=== PATIENT | female | born 1960 | race American Indian/Alaskan Native ===

== ENCOUNTER 2016-05-31 12:48 | Emergency (ER) | payer OTHER, MEDICAID ==
[2016-05-31 13:36] VITALS: BP 119/84
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
== END 2016-05-31 15:34 | disposition home or self-care (01) ==
LOC: ED 12:48
DX: M54.5 Low back pain (principal); V43.52XA Car driver injured in collision with other type car in traffic accident, initial encounter; Y93.89 Activity, other specified; Y99.8 Other external cause status; Y92.89 Other specified places as the place of occurrence of the external cause
CPT/HCPCS: 99282

== ENCOUNTER 2016-07-31 21:11 | Emergency (ER) | payer OTHER, MEDICAID | END 2016-08-01 00:28 | disposition left against medical advice (07) | LOC: ED 21:11 | DX: S69.91XA Unspecified injury of right wrist, hand and finger(s), initial encounter (principal); X58.XXXA Exposure to other specified factors, initial encounter; Y93.9 Activity, unspecified; Y99.9 Unspecified external cause status; Y92.9 Unspecified place or not applicable; Z53.21 Procedure and treatment not carried out due to patient leaving prior to being seen by health care provider ==

== ENCOUNTER 2016-08-01 10:11 | Emergency (ER) | payer MEDICAID, OTHER ==
[2016-08-01 10:38] VITALS: BP 138/91
--- NOTE | 2016-08-01 11:31 | XRay Report ---
RIGHT FINGERS, 3 VIEWS History: Right thumb injury. Findings: No acute osseous abnormality or joint pathology is identified. The soft tissues are unremarkable. Impression: Unremarkable right fingers.
[2016-08-01] MEDS ORDERED: MOTRIN PO ONE (13:11)
== END 2016-08-01 13:18 | disposition home or self-care (01) ==
LOC: ED 10:11
DX: S56.311A Strain of extensor or abductor muscles, fascia and tendons of right thumb at forearm level, initial encounter (principal); L03.011 Cellulitis of right finger; W22.8XXA Striking against or struck by other objects, initial encounter; Y93.89 Activity, other specified; Y92.89 Other specified places as the place of occurrence of the external cause; Y99.8 Other external cause status
CPT/HCPCS: 99283